=== PATIENT | female | born 1960 | race Caucasian/White ===

== ENCOUNTER 2021-04-23 05:57 | Inpatient (IN) | payer MEDICAID ==
[2021-04-16 15:18] LABS: BASOPHILS # (AUTO) 0.1 X10'3 (0-0.2); BASOPHILS % (AUTO) 1.3 % (0-1); EOSINOPHILS # (AUTO) 0.3 X10'3 (0-0.9); EOSINOPHILS % (AUTO) 3.8 % (0-6); LYMPHOCYTES # (AUTO) 2.1 X10'3 (1.1-4.8); LYMPHOCYTES % (AUTO) 30.4 % (21-51); MEAN CORPUSCULAR HEMOGLOBIN 30.1 PG (27.0-31.0); MEAN CORPUSCULAR HGB CONC 33.9 g/dL (33.0-36.5); MEAN CORPUSCULAR VOLUME 88.7 FL (78-98); MEAN PLATELET VOLUME 9.9 FL (7.4-10.4); MONOCYTES # (AUTO) 0.5 X10'3 (0-0.9); MONOCYTES % (AUTO) 6.5 % (2-12); NEUTROPHILS # (AUTO) 4.1 X10'3 (1.8-7.7); PRE OP HEMATOCRIT 39.2 % (35.0-45.0); PRE OP HEMOGLOBIN 13.3 g/dL (12.0-16.0); PRE OP PLATELET COUNT 263 X10'3 (140-440); RED BLOOD COUNT 4.42 X10'6 (4.20-5.60); RED CELL DISTRIBUTION WIDTH 15.8 % (11.5-14.5)
[2021-04-16 15:30] LABS: ALBUMIN 3.7 G/DL (3.4-5.0); ALBUMIN/GLOBULIN RATIO 0.9 (1.1-1.5); ALKALINE PHOSPHATASE 130 IU/L (46-116); BLOOD UREA NITROGEN 11 MG/DL (7-18); BUN/CREATININE RATIO 9.8 (6.6-38.0); CALCIUM 8.7 MG/DL (8.5-10.1); CHLORIDE 108 MMOL/L (99-107); CREATININE 1.12 MG/DL (0.40-0.90); PRE OP ALT 20 U/L (30-65); PRE OP ANION GAP 13 (8-16); PRE OP AST 21 U/L (10-37); PRE OP BILIRUB, TOTAL 0.7 MG/DL (0.0-1.0); PRE OP GLUCOSE 93 MG/DL (70-104); PRE OP POTASSIUM 3.8 MMOL/L (3.4-5.1); PRE OP SODIUM 142 MMOL/L (135-145); TOTAL CARBON DIOXIDE 21.1 MMOL/L (24-32); eGFR 49 ML/MIN
[~2021-04-23] VITALS: Ht 172.7 cm; Wt 106.5 kg
[2021-04-23] VITALS (24 sets, daily range): BP systolic 128–157; BP diastolic 78–98
[~2021-04-23 05:57] MED LIST: LEVO100T PO; ceFAZolin 2gm in dextrose, iso 50 ML IV ONE; famotidine 20mg tablet PO ONE; ringers solution, lacted 1,000 ML IV SCH
[2021-04-23] MEDS ORDERED: BUPIVAcaine/PF 2.5 mg/ml (0.25%) 30ml vial ONE (06:41)
[2021-04-23] MEDS ORDERED: LIDOcaine 1% 30ml preserv. free vial ONE (06:41)
[2021-04-23] MEDS ORDERED: midazolam 1 mg/ML 2ml injection ONE (07:35)
[2021-04-23] MEDS ORDERED: fentaNYL /PF 50mcg/ml 5ml ampule ONE (07:36)
[2021-04-23] MEDS ORDERED: ondansetron/PF 4mg/2ml inj IV PRN ×2 (08:40→10:15)
[2021-04-23] MEDS ORDERED: ringers solution, lacted 1,000 ML IV SCH (08:40)
[2021-04-23] MEDS ORDERED: morphine 4 MG/ML inj SYRINge IV PRN (08:40)
[2021-04-23] MEDS ORDERED: proCHLORperazine 10 MG/2 ml inj IV PRN (08:40)
[2021-04-23] MEDS ORDERED: morphine 2 MG/ML inj. syringe IV PRN (08:40)
[2021-04-23] MEDS ORDERED: meperidine/PF 25mg/ml syringe IV PRN ×2 (08:40)
[2021-04-23] MEDS ORDERED: rocuronium 10mg/ml inj IV ONE (09:51)
[2021-04-23] MEDS ORDERED: propofol inj 20 ML IV ONE (09:51)
[2021-04-23] MEDS ORDERED: ondansetron/PF 4mg/2ml inj ONE (09:51)
[2021-04-23] MEDS ORDERED: dexamethasone sod phosphate 4mg/ml inj. ONE (09:51)
[2021-04-23] MEDS ORDERED: sugammadex 200mg/2ml injection IV ONE ×2 (09:52)
--- NOTE | 2021-04-23 10:04 | NUR ---
Received from OR via , accompanied by Anesthesiologist DR MEDINA and report given by Anesthesiolgist. AWAKENS TO VOICE. VITALS STABLE. WOUNDS DI. NIKKI PAIN. ABD SOFT.
[2021-04-23] MEDS ORDERED: naloxone 0.4 mg/ml inj IV PRN (10:15)
[2021-04-23] MEDS: Potassium Cl inj 20 MEQ in ringers solution, lacted 1,000 ML IV SCH ×2 (10:15→22:20)
[2021-04-23] MEDS ORDERED: CADD PCA waste documentation MC PRN (10:15)
[2021-04-23] MEDS: meperidine/PF 25mg/ml syringe IV PRN ×2 (10:32→11:11)
[2021-04-23] MEDS: albuterol 2.5 MG/3 ML nebule NEB SCH ×2 (11:00→16:20)
[2021-04-23] MEDS: HYDROmorph./NS 0.2 mg/ml CADD 100 ML IV SCH ×8 (12:33→23:00)
--- NOTE | 2021-04-23 14:44 | NUR ---
Report called to receiving nurse. Transferred via BED Belongings . Special Issues communicated to receiving nurse. AWAKE AND ORIENTED. VITALS STABLE. DRESSINGS DI. STATES PAIN IMPROVING. HAD LONG STAY IN RECOVERY DUE TO NO STAFF AVAILABLE ON THE FLOOR. TO SURGICAL [facility]B AT THIS TIME.
--- NOTE | 2021-04-23 15:00 | NUR ---
Patient in room [facility]. I have received report from LISA SCHWARTZ and had the opportunity to ask questions and assume patient care.
--- NOTE | 2021-04-23 18:55 | NUR ---
Problems reprioritized. Patient report given, questions answered & plan of care reviewed with Elizabeth SCHWARTZ.
--- NOTE | 2021-04-23 19:07 | NUR ---
Patient in room [facility]. I have received report from Darvin SCHWARTZ and had the opportunity to ask questions and assume patient care.
--- NOTE | 2021-04-23 19:15 | NUR ---
Patient in room [facility]. I have received report from EFREN [place] and had the opportunity to ask questions and assume patient care.
[2021-04-24] VITALS: BP 142/84
[2021-04-24] MEDS: HYDROmorph./NS 0.2 mg/ml CADD 100 ML IV SCH ×7 (01:00→13:00)
[2021-04-24] MEDS: Potassium Cl inj 20 MEQ in ringers solution, lacted 1,000 ML IV SCH ×2 (02:25→05:09)
--- NOTE | 2021-04-24 06:32 | NUR ---
Problems reprioritized. Patient report given, questions answered & plan of care reviewed with EFREN Richards.
--- NOTE | 2021-04-24 06:35 | NUR ---
Problems reprioritized. Patient report given, questions answered & plan of care reviewed with Susie SCHWARTZ.
--- NOTE | 2021-04-24 06:35 | NUR ---
I have reviewed and agree with all interventions, assessments performed and documented by [employer].
[2021-04-24 06:39] LABS: BASOPHILS % (AUTO) 0.1 % (0-1); EOSINOPHILS % (AUTO) 0 % (0-6); HEMATOCRIT 35.6 % (35.0-45.0); HEMOGLOBIN 12.1 g/dl (12.0-16.0); LYMPHOCYTES # (AUTO) 1.1 X10'3 (1.1-4.8); LYMPHOCYTES % (AUTO) 11.4 % (21-51); MEAN CORPUSCULAR HEMOGLOBIN 30.4 PG (27.0-31.0); MEAN CORPUSCULAR VOLUME 89.2 FL (78-98); MONOCYTES # (AUTO) 0.5 X10'3 (0-0.9); MONOCYTES % (AUTO) 5.3 % (2-12); NEUTROPHILS # (AUTO) 7.9 X10'3 (1.8-7.7); NEUTROPHILS % (AUTO) 83.2 % (42-75); PLATELET COUNT 236 X10'3 (140-440); RED BLOOD COUNT 3.99 X10'6 (4.20-5.60); RED CELL DISTRIBUTION WIDTH 15.7 % (11.5-14.5); WHITE BLOOD COUNT 9.6 X10'3 (4.5-11.0)
[2021-04-24 07:00] VITALS: BP 128/78
[2021-04-24] MEDS ORDERED: levoTHYROXINE 100mcg tablet PO SCH (07:00)
[2021-04-24 07:04] LABS: ANION GAP 7 (8-16); BLOOD UREA NITROGEN 10 MG/DL (7-18); CALCIUM 8.4 MG/DL (8.5-10.1); CHLORIDE 108 MMOL/L (99-107); CREATININE 0.91 MG/DL (0.40-0.90); GLUCOSE 119 MG/DL (70-104); POTASSIUM 4.6 MMOL/L (3.5-5.1); SODIUM 139 MMOL/L (135-145); TOTAL CARBON DIOXIDE 24.5 MMOL/L (24-32); eGFR 63 ML/MIN
[2021-04-24] MEDS ORDERED: diatrozoate meglu/diatrozoate sod (37% iodine) 120ML oral solution ONE (08:00)
--- NOTE | 2021-04-24 11:02 | NUR ---
Nutrition consult: Pt s/p Dax fundoplication. Seen at bedside for written and verbal nutrition therapy education which includes the progression of diet post-op and ONS coupons. Pt verbalized understanding and denied questions at this time. RD contact information provided and pt encouraged to reach out if needed. Will remain available. Addendum: 04/24/21 at [address] Amended: Links added.
[2021-04-24 12:55] VITALS: BP 133/74
[2021-04-24] MEDS ORDERED: oxyCODONE/APAP 5-325mg tablet PO PRN (13:15)
[2021-04-24 13:32] VITALS: BP 158/85
[2021-04-24] MEDS ORDERED: PER5325T PO (15:07)
--- NOTE | 2021-04-24 15:54 | NUR ---
Pt discharged to home in private vehicle with . iv removed, tip intact, no complications. Belongings sent with pt. Educated on follow up with dr. green. pt discharged in stable condition
== END 2021-04-24 15:57 | disposition home or self-care (01) | DRG 220 ==
LOC: UNDOADMIN 05:57 → PAS IN 05:57 → SUR 3N 14:49
PROVIDERS: ADMIT Surgery; ATTEND Surgery
PROC: 8E0W4CZ Robotic Assisted Procedure of Trunk Region, Percutaneous Endoscopic Approach (ICD-10-PCS; 2021-04-23)
PROC: 0DV44ZZ Restriction of Esophagogastric Junction, Percutaneous Endoscopic Approach (ICD-10-PCS; 2021-04-23)
PROC: 0BQT4ZZ Repair Diaphragm, Percutaneous Endoscopic Approach (ICD-10-PCS; principal; 2021-04-23 07:28)
PROC: BD11ZZZ Fluoroscopy of Esophagus (ICD-10-PCS; 2021-04-24)
DX: K44.9 Diaphragmatic hernia without obstruction or gangrene (principal); Z79.890 Hormone replacement therapy
CPT/HCPCS: 36415; 71045; 74220; 80048; 80053; 82948; 85025; 93005; 94640; 94760; A4618; C1758; C9399; G0378; J1100; J1170; J2001; J2175; J2250; J2405; J2704; J3010; J3480; J3490; J7120; Q9963; U0003; U0005